=== PATIENT | male | born 1970 | race Caucasian/White ===

== ENCOUNTER 2017-01-02 09:40 | Outpatient (CLI) | payer OTHER ==
--- NOTE | 2017-01-02 10:20 | DIAGNOSTIC IMAGING REPORT ---
PROCEDURE: XR SHOULDER 2 OR MORE VW-RIGHT INDICATION: CHRONIUC RT SHOULDER PAIN TECHNIQUE: Three views. COMPARISON: None. FINDINGS: Osseous structures and joint spaces are normal. IMPRESSION: 1. Normal right shoulder.
== END 2017-01-02 23:00 ==
LOC: XR SRH 09:40
DX: M25.511 Pain in right shoulder (principal)